=== PATIENT | male | born 2000 | race Caucasian/White ===

== ENCOUNTER 2018-11-17 18:12 | Emergency (ER) | payer OTHER ==
[~2018-11-17] VITALS: Ht 182.9 cm; Wt 108.9 kg
[2018-11-17] MEDS ORDERED: NAPROSYN500 MG PO (19:19)
[2018-11-17 20:57] VITALS: BP 145/87
== END 2018-11-17 20:50 | disposition home or self-care (01) ==
LOC: ER 18:12
DX: M54.5 Low back pain (principal); X58.XXXA Exposure to other specified factors, initial encounter; Y93.89 Activity, other specified; Y92.89 Other specified places as the place of occurrence of the external cause; Y99.8 Other external cause status